=== PATIENT | male | born 1985 | race Caucasian/White ===

== ENCOUNTER 2019-08-12 16:02 | Inpatient (IN) | payer BC ==
[~2019-08-12] VITALS: Ht 182.9 cm; Wt 147.0 kg
--- NOTE | 2019-08-12 16:22 | NUR ---
[facility] for acute diverticulitis. Pt has hx divertic, was on abx which finished last week. Went to hospital today bc he coughed and his umbilical hernia came out. CT at [facility] showed acute divertic. Pt c/o 2/10 periumbilical pain. denies n/v/d but c/o pain on movement and coughing. sts fevers at home. Dr. Giles at bedside for eval. plan for IV abx and admission, pt aware and agrees w/ POC. VSS. call palma in reach.
[2019-08-12] MEDS ORDERED: CIPROFLOXACIN/PMX 400MG/200ML 100 ML IVPB ONE (16:30)
[2019-08-12] MEDS ORDERED: PLEASE ENTER ALLERGIES MC SCH (16:30)
[2019-08-12] MEDS ORDERED: METRONIDAZOLE PMX 500MG/100ML 100 ML IVPB ONE (16:30)
[2019-08-12] MEDS ORDERED: CIPROFLOXACIN/PMX 400MG/200ML 200 ML ONE (16:38)
[2019-08-12] MEDS ORDERED: METRONIDAZOLE PMX 500MG/100ML 100 ML ONE (16:38)
--- NOTE | 2019-08-12 16:42 | NUR ---
Dr. Godfrey at [facility] iv abx per nov.
--- NOTE | 2019-08-12 16:47 | NUR ---
per Dr. Godfrey pt ok to eat and drink.
[2019-08-12] MEDS ORDERED: hydrALAzine 20 MG/ML, 1ML IVPush PRN (17:00)
[2019-08-12] MEDS ORDERED: ACETAMINOPHEN 325 MG TABLET PO PRN (17:00)
[2019-08-12] MEDS ORDERED: ONDANSETRON 2MG/ML, 2ML IVPush PRN (17:00)
[2019-08-12] MEDS ORDERED: BUTALB/APAP/CAFFEINE 50MG/325MG/40MG PO PRN ×2 (17:00)
[2019-08-12] MEDS ORDERED: GUAIFENESIN/DM 200-20MG, 10ML UDC PO PRN (17:00)
[2019-08-12] MEDS ORDERED: ONDANSETRON ODT 4 MG PO PRN (17:00)
[2019-08-12] MEDS ORDERED: POLYETHYLENE GLYCOL 17 GM PACKET PO PRN (17:00)
[2019-08-12 17:40] LABS: ANION GAP 9 mmol/L (5-15); CALCIUM 8.8 mg/dL (8.5-10.1); CHLORIDE 105 mmol/L (98-107); CREATININE 0.87 mg/dL (0.7-1.3)
--- NOTE | 2019-08-12 18:18 | NUR ---
2nd abx per nov. pt c/o 03/26 pain and asking for dinner, resting in bed call palma in reach. attempt to call report at [phone].
--- NOTE | 2019-08-12 18:28 | NUR ---
Report to Radha.
[2019-08-12 19:14] VITALS: BP 115/77
[2019-08-12] MEDS: KETOROLAC 30 MG/1 ML IV PRN (20:41)
[2019-08-12] MEDS: LACTATED RINGERS 1,000 ML IV SCH (20:41)
[2019-08-12] MEDS: TRAZODONE 50MG TABLET PO PRN (21:48)
[2019-08-13] MEDS: METRONIDAZOLE PMX 500MG/100ML 100 ML IV SCH ×3 (00:38→16:35)
[2019-08-13 01:12] VITALS: BP 114/73
[2019-08-13] MEDS: LACTATED RINGERS 1,000 ML IV SCH (04:32)
[2019-08-13] MEDS: CIPROFLOXACIN/PMX 400MG/200ML 200 ML IV SCH ×2 (04:32→17:06)
[2019-08-13 06:26] LABS: BASOPHILS # (AUTO) 0.02 x10^3/uL (0-0.1); BASOPHILS % (AUTO) 0 % (0-1); EOSINOPHILS # (AUTO) 0.03 x10^3/uL (0-0.4); EOSINOPHILS % (AUTO) 0 % (1-7); LYMPHOCYTES # (AUTO) 0.96 x10^3/uL (1-3.4); LYMPHOCYTES % (AUTO) 10 % (22-44); MD NO; MEAN CORPUSCULAR HGB CONC 33.2 g/dL (33.2-36.2); MEAN CORPUSCULAR VOLUME 87.4 fL (81-97); MEAN PLATELET VOLUME 8.4 fL (7.4-10.4); MONOCYTES # (AUTO) 0.99 x10^3/uL (0.2-0.8); MONOCYTES % (AUTO) 10 % (2-9); NEUTROPHILS # (AUTO) 7.49 x10^3/uL (1.8-6.8); NEUTROPHILS % (AUTO) 79 % (42-75); PLATELET COUNT 246 x10^3/uL (130-400); RED BLOOD COUNT 4.32 x10^6/uL (4.38-5.82); RED CELL DISTRIBUTION WIDTH 13.8 % (9.4-14.8)
[2019-08-13 07:42] VITALS: BP 119/78
[2019-08-13] MEDS: KETOROLAC 30 MG/1 ML IV PRN ×2 (11:33→20:01)
[2019-08-13 13:22] VITALS: BP 123/82
[2019-08-13 17:59] VITALS: BP 139/79
[2019-08-13 20:00] VITALS: BP 125/74
[2019-08-13] MEDS: TRAZODONE 50MG TABLET PO PRN (20:01)
[2019-08-14] MEDS: METRONIDAZOLE PMX 500MG/100ML 100 ML IV SCH ×2 (00:11→08:42)
[2019-08-14 02:34] VITALS: BP 105/67
[2019-08-14] MEDS: CIPROFLOXACIN/PMX 400MG/200ML 200 ML IV SCH (04:55)
[2019-08-14 08:26] VITALS: BP 103/65
[2019-08-14] MEDS ORDERED: CIPR250T27 PO (09:32)
[2019-08-14] MEDS ORDERED: METR-90 PO (09:32)
[2019-08-14] MEDS ORDERED: CIPROFLOXACIN 500 MG TABLET PO ONE (10:00)
[2019-08-14] MEDS ORDERED: metroNIDAZOLE 500 MG TABLET PO ONE (10:00)
== END 2019-08-14 13:00 | disposition home or self-care (01) | DRG 392 ==
LOC: ED 16:34 → EDIP 16:48 → 3N 19:01
PROVIDERS: ADMIT Family Medicine; ATTEND Family Medicine
DX: K57.20 Diverticulitis of large intestine with perforation and abscess without bleeding (principal); Z68.41 Body mass index [BMI] 40.0-44.9, adult; E66.01 Morbid (severe) obesity due to excess calories; E86.0 Dehydration; F12.90 Cannabis use, unspecified, uncomplicated; J40 Bronchitis, not specified as acute or chronic; K42.9 Umbilical hernia without obstruction or gangrene
CPT/HCPCS: 36415; 80048; 83735; 85025; 96365; 99285; G0378; J0744; J1885; J2405; J7120